=== PATIENT | female | born 2000 | race Two or more races ===

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

== ENCOUNTER 2022-02-25 06:57 | Inpatient (IN) | payer OTHER ==
[~2022-02-25] VITALS: Ht 154.9 cm; Wt 72.6 kg
[2022-02-25] MEDS ORDERED: LACTATED RINGER'S 1,000 ML IV SCH (07:15)
[2022-02-25] MEDS ORDERED: BUTORPHANOL TARTRATE 2 MG/1 ML VIAL IV PRN ×2 (07:15)
[2022-02-25] MEDS ORDERED: DERMOPLAST 60ML BOTTLE TOP PRN (07:15)
[2022-02-25] MEDS ORDERED: LACT. RINGERS/OXYTOCIN 20UNITS 500 ML IV ONE ×2 (07:15→07:45)
[2022-02-25] MEDS ORDERED: PROMETHAZINE HCL 25 MG/ML 1ML IV PRN (07:15)
[2022-02-25] MEDS ORDERED: TERBUTALINE SULFATE 1 MG/ML 1ML VIAL SC PRN (07:15)
[2022-02-25] MEDS ORDERED: WITCH HAZEL-GLYCERIN PAD TOP PRN (07:15)
[2022-02-25] MEDS ORDERED: PHISODERM TOP SOLN 240ML BTL TOP PRN (07:15)
[2022-02-25] MEDS ORDERED: LIDOCAINE 2%HCL (LOCAL ANESTH.) INJ 10ml MDV IJ PRN ×2 (07:15→08:15)
[2022-02-25 07:45] LABS: Basophils # (auto) 0 10 ^3/uL (0-0.2); Basophils % (auto) 0.2 % (0.0-2.0); Eosinophils # (auto) 0 10 ^3/uL (0-0.8); Eosinophils % (auto) 0.1 % (0.0-7.0); Hematocrit 38.1 % (36.0-46.0); Hemoglobin 12.7 g/dL (12.2-16.2); Lymphocytes # (auto) 1.4 10 ^3/uL (0.4-5.4); Lymphocytes % (auto) 16.3 % (10.0-50.0); Mean Corpuscular Hemoglobin 27.6 pg (28.0-32.0); Mean Corpuscular Hgb Conc. 33.2 g/dL (32.0-36.0); Mean Corpuscular Volume 83.1 fL (80.0-100.0); Monocytes # (auto) 0.3 10 ^3/uL (0-1.3); Monocytes % (auto) 3.7 % (0.0-12.0); Neutrophils # (auto) 6.8 10 ^3/uL (1.6-8.6); Neutrophils % (auto) 79.7 % (37.0-80.0); Red Blood Cells 4.59 10^6/uL (4.0-5.20); Red Cell Distribution Width 14.4 % (11.8-14.3); White Blood Cell 8.5 10^3/uL (4.4-10.8)
[2022-02-25 07:50] LABS: Urine Bacteria NONE SEEN /hpf (None Seen); Urine Blood Negative /uL (Negative); Urine Specific Gravity 1.024 (1.001-1.035); Urine WBC 18 /hpf (0 - 5)
[2022-02-25 08:01] LABS: Albumin 2.6 g/dL (3.4-5.0); Calcium 8.5 mg/dL (8.5-10.1)
[2022-02-25 08:05] LABS: BUN/Creatinine Ratio 16.1; Bilirubin, Total 0.8 mg/dL (0.2-1.0); Total Protein 6.8 g/dL (6.4-8.2)
[2022-02-25 08:12] LABS: INR 0.91 (0.9-1.15); Partial Thromboplastin Time 29.1 sec (24.6-33.4)
[2022-02-25] MEDS ORDERED: ePHEDrine SULFATE 50 MG/ML AMP IV ONE ×2 (08:15→09:45)
[2022-02-25] MEDS ORDERED: LACTATED RINGER'S 1,000 ML IV ONE (08:15)
[2022-02-25] MEDS ORDERED: NALOXONE HCL 0.4 MG/ML VIAL IV ONE ×2 (08:15→09:45)
[2022-02-25] MEDS ORDERED: ROPIVACAINE HCL 200 ML EPI SCH ×2 (08:15→09:45)
[2022-02-25 08:17] LABS: Alcohol, Urine < 3.0 mg/dL (0-10); Amphetamine Screen, Urine NEGATIVE (NEGATIVE); Barbiturate Scree,Urine NEGATIVE (NEGATIVE); Benzodiazephine Screen, Urine NEGATIVE (NEGATIVE); Cannabinoid Screen, Urine NEGATIVE (NEGATIVE); Cocaine Screen, Urine NEGATIVE (NEGATIVE); Opiate Scree,Urine NEGATIVE (NEGATIVE); Phencyclidine Screen, Urine NEGATIVE (NEGATIVE)
[2022-02-25] MEDS ORDERED: LIDOCAINE 2%HCL (LOCAL ANESTH.) INJ 20ML MDV ONE (08:30)
[2022-02-25] MEDS ORDERED: LACT. RINGERS/OXYTOCIN 20UNITS 1,000 ML IV SCH (13:15)
[2022-02-25] MEDS ORDERED: ACETAMINOPHEN 325 MG TAB PO PRN (17:30)
[2022-02-25] MEDS ORDERED: ONDANSETRON ODT 4 MG TAB PO PRN (17:30)
[2022-02-25] MEDS: IBUPROFEN 600 MG TAB PO PRN (17:48)
[2022-02-25 18:45] VITALS: BP 109/57
[2022-02-25 23:00] VITALS: BP 96/54
[2022-02-26 03:00] VITALS: BP 110/79
[2022-02-26] MEDS: IBUPROFEN 600 MG TAB PO PRN (03:29)
[2022-02-26 06:06] LABS: RPR Non Reactive (Non Reactive)
[2022-02-26 07:00] VITALS: BP 104/59
[2022-02-26 08:06] LABS: Rubella Antibodies, IgG 0.91 index (Immune >0.99)
[2022-02-26 11:00] VITALS: BP 106/60
[2022-02-26 15:00] VITALS: BP 101/65
== END 2022-02-26 16:44 | disposition home or self-care (01) | DRG 807 ==
LOC: LDRP 06:57 → OBSVTOIN 07:13 → LDRP 20:46
PROVIDERS: ADMIT Obstetrics & Gynecology; ATTEND Obstetrics & Gynecology
PROC: 10E0XZZ Delivery of Products of Conception, External Approach (ICD-10-PCS; principal; 2022-02-25)
PROC: 3E0R3BZ Introduction of Anesthetic Agent into Spinal Canal, Percutaneous Approach (ICD-10-PCS; 2022-02-25)
PROC: 00HU33Z Insertion of Infusion Device into Spinal Canal, Percutaneous Approach (ICD-10-PCS; 2022-02-25)
DX: O48.0 Post-term pregnancy (principal); Z37.0 Single live birth; Z20.822 Contact with and (suspected) exposure to COVID-19; Z3A.40 40 weeks gestation of pregnancy
CPT/HCPCS: 36415; 80053; 80307; 81001; 85025; 85610; 85730; 86592; 86703; 86762; 86850; 86900; 86901; 87340; 87426; 94762; G0378; J2590

== ENCOUNTER 2024-01-06 22:29 | Inpatient (IN) | payer OTHER ==
[~2024-01-06] VITALS: Ht 154.9 cm; Wt 71.2 kg
[2024-01-06] MEDS ORDERED: ONDANSETRON HCL 4 MG/2 ML VIAL IV PRN (23:00)
[2024-01-06] MEDS ORDERED: miSOPROStol 100 mcg TAB SL PRN (23:00)
[2024-01-06] MEDS ORDERED: DIPHENOXYLATE W/ATROPINE 2.5 MG TAB PO PRN (23:00)
[2024-01-06] MEDS ORDERED: NALBUPHINE HCL 10 MG/1ml INJECTION IV PRN (23:00)
[2024-01-06] MEDS ORDERED: CARBOPROST TROMETHAMINE 250 MCG/1ML VIAL IM PRN (23:00)
[2024-01-06] MEDS ORDERED: METHYLERGONOVINE MALEATE 0.2 MG/ML AMP IM PRN (23:00)
[2024-01-06] MEDS ORDERED: miSOPROStol 100 mcg TAB PR PRN (23:00)
[2024-01-06 23:20] LABS: Basophils # (auto) 0 10 ^3/uL (0-0.2); Eosinophils # (auto) 0 10 ^3/uL (0-0.8); Eosinophils % (auto) 0.2 % (0.0-7.0); Hemoglobin 11.5 g/dL (12.2-16.2); Lymphocytes # (auto) 1.7 10 ^3/uL (0.4-5.4); Lymphocytes % (auto) 24.7 % (10.0-50.0); Monocytes # (auto) 0.4 10 ^3/uL (0-1.3); Neutrophils # (auto) 4.8 10 ^3/uL (1.6-8.6); White Blood Cell 6.9 10^3/uL (4.4-10.8)
[2024-01-06 23:22] LABS: Basophils % (auto) 0.3 % (0.0-2.0); Hematocrit 34.5 % (36.0-46.0); Mean Corpuscular Hemoglobin 26.8 pg (28.0-32.0); Mean Corpuscular Hgb Conc. 33.5 g/dL (32.0-36.0); Mean Corpuscular Volume 80.2 fL (80.0-100.0); Monocytes % (auto) 5.8 % (0.0-12.0); Platelet Count (auto) 279 10^3/uL (140-450); Red Cell Distribution Width 14.9 % (11.8-14.3)
[2024-01-06 23:22] LABS: Urine Bacteria None Seen /hpf (None Seen)
[2024-01-06 23:29] LABS: Urine Blood Negative /uL (Negative); Urine Clarity Clear (Clear); Urine Color Yellow (Yellow); Urine Mucus FEW (None Seen); Urine Protein, UAD 1+ (Negative); Urine Specific Gravity 1.032 (1.001-1.035); Urine Urobilinogen Normal (Negative); Urine WBC 1 /hpf (0 - 5)
[2024-01-06] MEDS ORDERED: NALOXONE HCL 0.4 MG/ML VIAL IV ONE (23:30)
[2024-01-06] MEDS ORDERED: fentaNYL CITRATE 100 MCG/2 ML VL IV ONE (23:30)
[2024-01-06] MEDS ORDERED: LACTATED RINGER'S 1,000 ML IV ONE (23:30)
[2024-01-06] MEDS ORDERED: ePHEDrine SULFATE 50 MG/ML AMP IV ONE (23:30)
[2024-01-06 23:37] LABS: Amphetamine Screen, Urine Neg (NEGATIVE); Barbiturate Scree,Urine Neg (NEGATIVE); Benzodiazephine Screen, Urine Neg (NEGATIVE); Cocaine Screen, Urine Neg (NEGATIVE); Opiate Scree,Urine Neg (NEGATIVE)
[2024-01-06 23:38] LABS: Cannabinoid Screen, Urine Neg (NEGATIVE); Phencyclidine Screen, Urine Neg (NEGATIVE)
[2024-01-06 23:40] LABS: Albumin 4.1 g/dL (3.2-4.8); Alkaline Phosphatase 168 U/L (46-116); Anion Gap 9 (5-15); Aspartate Aminotransferase 10 U/L (13-40); BUN/Creatinine Ratio 15.6 (10.0-20.0); Blood Urea Nitrogen 10 mg/dL (9-23); Carbon Dioxide 21 mmol/L (20-31); Chloride 109 mmol/L (98-107); Glucose 91 mg/dL (74-106); INR 0.97 (0.9-1.15); Partial Thromboplastin Time 23.9 SEC (24.5-34.5); Potassium 3.7 mmol/L (3.5-5.1); Prothrombin Time 10.3 sec (9.3-11.8); Sodium 139 mmol/L (136-145)
[2024-01-06 23:41] LABS: Total Protein 6.7 g/dL (5.7-8.2)
[2024-01-07 00:03] LABS: Alanine Aminotransferase < 9 U/L (7-40)
[2024-01-07] MEDS: LACT. RINGERS/OXYTOCIN 20UNITS 500 ML IV ONE ×2 (00:50→02:03)
[2024-01-07] MEDS: fentaNYL CITRATE 100 MCG/2 ML VL IV ONE (00:53)
[2024-01-07] MEDS: PHISODERM TOP SOLN 240ML BTL TOP PRN (00:53)
[2024-01-07] MEDS: WITCH HAZEL-GLYCERIN PAD TOP PRN (00:54)
[2024-01-07] MEDS: DERMOPLAST 60ML BOTTLE TOP PRN (00:54)
[2024-01-07] MEDS: ACETAMINOPHEN 325 MG TAB PO PRN (02:26)
[2024-01-07] MEDS: LIDOCAINE 2%HCL (LOCAL ANESTH.) INJ 20ML MDV IJ PRN (02:27)
[2024-01-07 03:00] VITALS: BP 121/63; PULSE 63; RESP 16; TEMP 98.1
[2024-01-07 04:20] VITALS: PULSE 135; RESP 58; TEMP 98; O2SAT 98
[2024-01-07] MEDS: LACTATED RINGER'S 1,000 ML IV SCH (05:33)
[2024-01-07] MEDS: LACTATED RINGER'S 1,000 ML IV ONE (05:36)
[2024-01-07 07:00] VITALS: BP 100/63; PULSE 82; RESP 16; RESP 18; TEMP 99; O2SAT 97
[2024-01-07] MEDS: IBUPROFEN 600 MG TAB PO PRN (09:33)
[2024-01-07 11:00] VITALS: BP 100/59; PULSE 78; RESP 18; TEMP 99.3
[2024-01-07 15:00] VITALS: BP 100/62; PULSE 77; RESP 18; TEMP 98.4
[2024-01-07 18:50] VITALS: BP 104/65; PULSE 90; RESP 16; TEMP 98.1; O2SAT 95
[2024-01-07] MEDS ORDERED: DOCUSATE SOD 100 MG CAP PO SCH (22:00)
[2024-01-08 03:10] VITALS: BP 100/54; PULSE 63; RESP 16; TEMP 97.8; O2SAT 95
[2024-01-08 07:00] VITALS: BP 105/66; PULSE 83; RESP 16; TEMP 98.1; O2SAT 98
[2024-01-08] MEDS ORDERED: IBU600T PO (07:46)
[2024-01-08 11:00] VITALS: BP 100/60; PULSE 79; RESP 16; TEMP 98.2; O2SAT 98
== END 2024-01-08 12:08 | disposition home or self-care (01) | DRG 807 ==
LOC: LDRP 22:29 → OBSVTOIN 22:36 → LDRP 22:37
PROVIDERS: ADMIT Obstetrics & Gynecology; ATTEND Obstetrics & Gynecology
PROC: 10E0XZZ Delivery of Products of Conception, External Approach (ICD-10-PCS; principal; 2024-01-07)
PROC: 0UQMXZZ Repair Vulva, External Approach (ICD-10-PCS; 2024-01-07)
DX: O48.0 Post-term pregnancy (principal); Z37.0 Single live birth; O71.82 Other specified trauma to perineum and vulva; O32.6XX0 Maternal care for compound presentation, not applicable or unspecified; Z3A.40 40 weeks gestation of pregnancy
CPT/HCPCS: 36415; 59025; 59409; 80053; 80307; 81001; 85025; 85610; 85730; 86592; 86850; 86900; 86901; 94760; 94762; 96360; 96361; 96365; 96366; 96374; G0378; J2590